=== PATIENT | female | born 1995 | race African-American/Black ===

== ENCOUNTER 2021-06-08 23:43 | Emergency (ER) | payer OTHER ==
[~2021-06-08] VITALS: Ht 157.5 cm; Wt 83.9 kg
[2021-06-09 03:40] LABS: PLATELET COUNT 188 K/uL (152-353)
[2021-06-09 05:56] VITALS: BP 140/88; TEMP 97.7
== END 2021-06-09 06:41 | disposition home or self-care (01) ==
LOC: ED 23:43
PROVIDERS: Emergency Medicine Emergency Medical Services
DX: N23 Unspecified renal colic (principal); N39.0 Urinary tract infection, site not specified
CPT/HCPCS: 36415; 80053; 81000; 81025; 85027; 87086; 87088; 96360; 96375; 99284; J1885; Q9963

== ENCOUNTER 2021-09-21 09:56 | Outpatient (CLI) | payer OTHER | END 2021-09-21 18:52 | disposition home or self-care (01) | LOC: US 09:56 | PROVIDERS: ATTEND Internal Medicine | DX: R10.9 Unspecified abdominal pain (principal); R11.2 Nausea with vomiting, unspecified ==

== ENCOUNTER 2023-06-27 14:02 | Outpatient (CLI) | payer OTHER | END 2023-06-27 18:53 | disposition home or self-care (01) | LOC: RAD 14:02 | PROVIDERS: ATTEND Nurse Practitioner Family | DX: Z01.818 Encounter for other preprocedural examination (principal) ==